=== PATIENT | male | born 1980 | race Caucasian/White ===

== ENCOUNTER 2017-03-24 22:00 | Emergency (ER) | payer MEDICARE, MEDICAID ==
--- NOTE | 2017-03-25 06:48 | ER ---
ADMIT: 03/24/2017 RM/LOC: ER [facility] MR#: [id number] [facility]-[address] [id number] ISAI DONOVAN [address] [place] [address] Emergency Room Report SEX: M AGE: 36 : 1980 DATE: 03/24/2017 The patient is a 36-year-old male who jumped out of a truck a week ago injuring his right foot plantar arch. Exam remarkable for nontoxic, afebrile male. No acute distress. Exam unremarkable. Otherwise, x-ray of right foot negative. Follow up Dr. Coffey as needed. Bartolome Mcwilliams MD/ padilla JOB #: [id number] CC: Bartolome Mcwilliams MD, Attending Physician Shiloh Coffey MD, Family Physician Shiloh Coffye MD
== END 2017-03-24 22:47 | disposition home or self-care (01) ==
LOC: ER 22:00
DX: S93.601A Unspecified sprain of right foot, initial encounter (principal); F31.9 Bipolar disorder, unspecified; Z79.899 Other long term (current) drug therapy; V69.3XXA Occupant (driver) (passenger) of heavy transport vehicle injured in unspecified nontraffic accident, initial encounter; Y92.488 Other paved roadways as the place of occurrence of the external cause